=== PATIENT | male | born 1965 | race Caucasian/White ===

== ENCOUNTER 2024-06-28 06:13 | Day surgery (SDC) | payer BC, OTHER ==
[~2024-06-28 06:13] MED LIST: Acetaminophen 1,000 MG in Premix Bag 1 BAG IV SCH; Albuterol 0.083% 2.5 MG/3 ML Neb Soln NEB PRN; HYDROmorphone 1 MG/ML Syringe IVPUSH PRN; Metoclopramide 10 MG/2 ML SDV IVPUSH PRN; Morphine 2 MG/ML SYRINGE IVPUSH PRN; Naloxone 0.4 MG/ML SDV IVPUSH PRN; Ondansetron 4 MG/2 ML SDV IVPUSH PRN; Phenylephrine HCl In 0.9% NaCl 1 MG/10 ML Syringe IVPUSH PRN; ceFAZolin 2 GM in Sodium Chloride 0.9% 50 ML IV ONE; fentaNYL 50 MCG/ML SDV IVPUSH PRN
[2024-06-28] MEDS: Pregabalin 75 MG Cap PO SCH (06:45)
[2024-06-28] MEDS: Scopalamine 1mg/3day Transdermal Patch TOP ONE (06:45)
[2024-06-28] MEDS ORDERED: Rocuronium Bromide 50 MG/5 ML Syringe ONE (07:09)
[2024-06-28] MEDS ORDERED: Ondansetron 4 MG/2 ML SDV ONE ×2 (07:09→08:02)
[2024-06-28] MEDS ORDERED: Dexamethasone 4 MG/ML 5 ML MDV ONE (07:09)
[2024-06-28] MEDS ORDERED: dexmedeTOMIDine HCl 200 MCG/2 ML SDV ONE (07:09)
[2024-06-28] MEDS ORDERED: fentaNYL 100 MCG/2 ML SDV ONE (07:10)
[2024-06-28] MEDS ORDERED: Propofol 200 MG/20 ML SDV ONE (07:10)
[2024-06-28] MEDS ORDERED: Sodium Chloride 0.9% 20 ML ONE (07:10)
[2024-06-28] MEDS ORDERED: Ropivacaine 0.5% 5 MG/ML 30 ML SDV ONE (07:10)
[2024-06-28] MEDS ORDERED: Midazolam 1 MG/ML 2 ML SDV ONE (07:10)
[2024-06-28] MEDS: Lactated Ringers 1,000 ML IV SCH (07:15)
[2024-06-28] MEDS ORDERED: Bupivacaine 0.5% 30 ML SDV ONE (07:17)
[2024-06-28] MEDS ORDERED: ceFAZolin 2 GM Vial ONE (07:58)
[2024-06-28] MEDS ORDERED: Sugammadex Sodium 200 MG/2 ML VIAL IV ONE (08:01)
[2024-06-28] MEDS ORDERED: Ketorolac 30 MG/ML SDV ONE (08:01)
[2024-06-28] MEDS ORDERED: ePHEDrine 50 MG/ML SDV ONE (08:41)
== END 2024-06-28 13:00 | disposition home or self-care (01) ==
LOC: MW.SDS 06:13
PROVIDERS: ATTEND Surgery
DX: K40.90 Unilateral inguinal hernia, without obstruction or gangrene, not specified as recurrent (principal); D17.6 Benign lipomatous neoplasm of spermatic cord; I10 Essential (primary) hypertension; Z79.899 Other long term (current) drug therapy
CPT/HCPCS: 49650; A9270; J0131; J0665; J0690; J1100; J1885; J2250; J2405; J2704; J2795; J3010; J7120; J3490